=== PATIENT | female | born 1980 | race Two or more races ===

== ENCOUNTER 2017-03-14 13:53 | Inpatient (IN) | payer SELFPAY ==
[~2017-03-14] VITALS: Ht 170.2 cm; Wt 87.5 kg
[~2017-03-14 13:53] MED LIST: ACET-704 PO; IBUP-1060 PO
--- NOTE | 2017-03-14 14:50 | PDOC1 ---
OB - History Hx of Present Care: Good Care Ultrasounds: Normal mid trimester US Obstetrical Complications: None Medical Complications: None Past Family/Social History * Past Medical, Surgical, Family and Obstetric Histories reviewed from chart. Blood Type: Unknown Rubella: Unknown RPR/VDRL: Unknown GBS Status: Unknown HBsAG: Unknown OB - Chief Complaint & HPI Date of Admission: Date of Admission: Mar 14, 2017 at 13:53 Chief Complaint/History : 5 Para: 4 EGA: 38 Reason for admission: active labor Admission Nurse Assessment Rev: Yes Problems: OB - Admission Exam Physical Exam HEENT: Normal Heart: Regular Rate Lungs: Clear, Equal Abdomen: Gravid, Non tender, Soft Extremities: Edema Reflexes: Normal Cervical Dilatation: 4cm Effacement: 75% Station: -3 Membranes: Intact Heart Rate: Normal Accelerations: Accelerations Present Decelerations: No decelerations [place] Variability: Moderate Contractions on Admission: < 5 Minutes Apart Intensity: Moderate Text A: 38 wks IUP Active Labor P: Admit for labor management. Start Pen G if GBS unavailable. FRIDA KITCHEN Jr, MD Mar 14, 2017 14:50
[2017-03-14] MEDS ORDERED: IV RINGERS,LACTATED 1000ML 1,000 ML IV SCH (14:53)
[2017-03-14] MEDS ORDERED: BUTORPHANOL 2 MG/ML VIAL. IV PRN (15:00)
[2017-03-14] MEDS ORDERED: fentaNYL PF VIAL 100 MCG/2 ML VIAL IV PRN (15:00)
[2017-03-14] MEDS ORDERED: 0.9 % SODIUM CHLORIDE 10 ML DISP.SYRIN. IV PRN ×2 (15:00→16:45)
[2017-03-14] MEDS ORDERED: ACETAMINOPHEN 325 MG TABLET. PO PRN ×2 (15:00→16:45)
[2017-03-14] MEDS ORDERED: LIDOCAINE 1% PF 30 ML VIAL. INJ PRN (15:00)
[2017-03-14 15:25] LABS: BASO # 0.1 x10^3/uL (0.0-0.2); BASO % 1 % (0-3); EOS % 1 % (0-3); HEMATOCRIT 40.2 % (36.0-47.0); HEMOGLOBIN 13.1 g/dL (12.0-15.5); LYMPH # 2.1 x10^3/uL (1.0-4.8); LYMPH % 18 % (24-48); MEAN CORPUSCULAR HEMOGLOBIN 31 pg (25-35); MEAN CORPUSCULAR HGB CONC 33 g/dL (31-37); MEAN CORPUSCULAR VOLUME 94 fL (79-100); MONO % 5 % (0-9); NEUT % 75 % (31-73); PLATELET COUNT 172 x10^3/uL (140-400); RED BLOOD COUNT 4.27 x10^6/uL (3.50-5.40); RED CELL DISTRIBUTION WIDTH 13.8 % (11.5-14.5); WHITE BLOOD COUNT 11.5 x10^3/uL (4.0-11.0)
--- NOTE | 2017-03-14 16:41 | PDOC ---
VAGINAL DELIVERY DATE DATE: 03/14/17 TIME: 16:39 : 5 Para: 5 EGA: 38 VAGINAL DELIVERY: VTX VACCUM ASSISTED: No PLACENTA: Spontaneous 8/9 SEX: Male WEIGHT Weight [ 4080 gm] Nuchal Cord: No Amniotic Fluid: Clear PAIN: Natural EPISIOTOMY: No EXTENSION: Yes (2nd degree midline laceration) REPAIRED WITH 2-0 vicryl EBL 300 ml COMPLICATIONS none CONDITION pt. stable Signs of Intrauterine Infectio: None Shoulder Dystocia: No Problems: FRIDA KITCHEN Jr, MD Mar 14, 2017 16:41
[2017-03-14] MEDS ORDERED: DOCUSATE SODIUM 100 MG CAPSULE. PO PRN (16:45)
[2017-03-14] MEDS ORDERED: MAGNESIUM HYDROXIDE 2,400 MG/30 ML ORAL.SUSP. PO PRN (16:45)
[2017-03-14] MEDS ORDERED: IBUPROFEN 800 MG TABLET. PO PRN (16:45)
[2017-03-14] MEDS ORDERED: OXYTOCIN 30 UNIT/500 ML PREMIX 500 ML IV PRN (16:45)
[2017-03-14] MEDS ORDERED: PHENYLEPH/MINERAL OIL/PETROLAT RECTAL OINTMENT 28GM TUBE. RC PRN (16:45)
[2017-03-14] MEDS ORDERED: MMR per PROTOCOL. MC PRN (16:45)
[2017-03-14] MEDS ORDERED: MAG HYDROX/ALUMINUM HYD/SIMETH 30 ML ORAL.SUSP PO PRN (16:45)
[2017-03-14] MEDS ORDERED: HYDROCORTISONE 1% TOPICAL OINTMENT 30GM TUBE. TP PRN (16:45)
[2017-03-14] MEDS ORDERED: BENZOCAINE 20% TOPICAL AEROSOL SPRAY 57GM CAN. TP PRN (16:45)
[2017-03-14] MEDS ORDERED: oxyCODONE/APAP 5/325 1 TAB TABLET PO PRN (16:45)
[2017-03-14] MEDS ORDERED: diphenhydrAMINE HCL 25 MG CAPSULE PO PRN (16:45)
[2017-03-14] MEDS ORDERED: ZOLPIDEM 5 MG TABLET. PO PRN (16:45)
[2017-03-14] MEDS ORDERED: SIMETHICONE 80 MG TAB.CHEW PO PRN (16:45)
[2017-03-14] MEDS: OXYTOCIN 30 UNIT/500 ML PREMIX 500 ML IV PRN (16:53)
[2017-03-14] MEDS ORDERED: FERROUS SULFATE 325 MG TABLET. PO SCH (17:00)
[2017-03-14] MEDS: IBUPROFEN 800 MG TABLET. PO PRN (18:07)
[2017-03-14 19:45] VITALS: BP 109/64
[2017-03-14 20:45] VITALS: BP 106/63
[2017-03-15] MEDS: IBUPROFEN 800 MG TABLET. PO PRN ×3 (00:04→16:56)
[2017-03-15 01:00] VITALS: BP 110/64
[2017-03-15 05:00] VITALS: BP 119/73
[2017-03-15 06:53] LABS: BASO # 0.1 x10^3/uL (0.0-0.2); BASO % 0 % (0-3); EOS % 1 % (0-3); HEMATOCRIT 38.3 % (36.0-47.0); HEMOGLOBIN 12.4 g/dL (12.0-15.5); LYMPH # 2.8 x10^3/uL (1.0-4.8); LYMPH % 18 % (24-48); MEAN CORPUSCULAR HEMOGLOBIN 30 pg (25-35); MEAN CORPUSCULAR HGB CONC 32 g/dL (31-37); MEAN CORPUSCULAR VOLUME 94 fL (79-100); MONO % 5 % (0-9); NEUT % 76 % (31-73); PLATELET COUNT 143 x10^3/uL (140-400); RED BLOOD COUNT 4.08 x10^6/uL (3.50-5.40); RED CELL DISTRIBUTION WIDTH 13.9 % (11.5-14.5); WHITE BLOOD COUNT 15.1 x10^3/uL (4.0-11.0)
[2017-03-15 10:00] VITALS: BP 99/59
[2017-03-15 14:40] VITALS: BP 106/61
[2017-03-15 18:13] VITALS: BP 101/61
[2017-03-15 19:30] VITALS: BP 107/67
[2017-03-15] MEDS: OXYTOCIN 30 UNIT/500 ML PREMIX 500 ML IV PRN (20:19)
[2017-03-16 05:00] VITALS: BP 115/70
[2017-03-16 11:25] VITALS: BP 112/68
[2017-03-16 14:00] VITALS: BP 106/72
--- NOTE | 2017-03-16 17:09 | PDOC ---
OB Progress Note Date of Service 03/16/17 Time of Evaluation 1700 Notes PT. feeling well. No complaints. Lab Laboratory Tests Test 03/15/17 06:08 White Blood Count 15.1 x10^3/uL (4.0-11.0) Red Blood Count 4.08 x10^6/uL (3.50-5.40) Hemoglobin 12.4 g/dL (12.0-15.5) Hematocrit 38.3 % (36.0-47.0) Mean Corpuscular Volume 94 fL (79-100) Mean Corpuscular Hemoglobin 30 pg (25-35) Mean Corpuscular Hemoglobin Concent 32 g/dL (31-37) Red Cell Distribution Width 13.9 % (11.5-14.5) Platelet Count 143 x10^3/uL (140-400) Neutrophils (%) (Auto) 76 % (31-73) Lymphocytes (%) (Auto) 18 % (24-48) Monocytes (%) (Auto) 5 % (0-9) Eosinophils (%) (Auto) 1 % (0-3) Basophils (%) (Auto) 0 % (0-3) Neutrophils # (Auto) 11.5 x10^3uL (1.8-7.7) Lymphocytes # (Auto) 2.8 x10^3/uL (1.0-4.8) Monocytes # (Auto) 0.7 x10^3/uL (0.0-1.1) Eosinophils # (Auto) 0.1 x10^3/uL (0.0-0.7) Basophils # (Auto) 0.1 x10^3/uL (0.0-0.2) Medications Current Medications Sodium Chloride (Normal Saline Flush) 3 ml QSHIFT PRN IV AFTER MEDS AND BLOOD DRAWS; Start 03/14/17 at 15:00; Stop 03/15/17 at 07:42; Status DC Ringer's Solution 1,000 ml @ 125 mls/hr Q8H IV Last administered on t 15:12; Start 03/14/17 at 14:53; Stop 03/15/17 at 07:42; Status DC Butorphanol Tartrate (Stadol) 2 mg PRN Q1HR PRN IV Severe labor pain; Start at 15:00; Stop 03/15/17 at 07:42; Status DC Fentanyl Citrate (Fentanyl 2ml Vial) 50 mcg PRN Q20MIN PRN IV Labor pain; Start 03/14/17 at 15:00; Stop 03/15/17 at 07:42; Status DC Acetaminophen (Tylenol) 650 mg PRN Q6HRS PRN PO MILD PAIN / TEMP; Start at 15:00; Stop 03/15/17 at 07:42; Status DC Lidocaine HCl 30 ml 1X PRN PRN INJ SEE COMMENTS Last administered on 16:54; Start 03/14/17 at 15:00; Stop 03/15/17 at 07:42; Status DC Oxytocin/Sodium Chloride 500 ml @ 0 mls/hr CONT PRN PRN IV Post delivery bleeding Last administered on 03/14/17 16:53; Start 03/14/17 at 15:00 Ibuprofen (Motrin) 800 mg PRN Q6HRS PRN PO PAIN Last administered on 16:56; Start 03/14/17 at 15:00 Sodium Chloride (Normal Saline Flush) 10 ml QSHIFT PRN IV AFTER MEDS AND BLOOD DRAWS; Start 03/14/17 at 16:45 Oxytocin/Sodium Chloride 500 ml @ 62.5 mls/hr CONT PRN IV SEE I/O RECORD; Start 03/14/17 at 16:45; Stop 03/15/17 at 00:44; Status DC Acetaminophen (Tylenol) 650 mg PRN Q6HRS PRN PO MILD PAIN / TEMP; Start at 16:45 Ibuprofen (Motrin) 800 mg PRN Q8HRS PRN PO INFLAMMATION/PAIN PREVENTION; Start 03/14/17 at 16:45; Stop 03/15/17 at 07:42; Status DC Docusate Sodium (Colace) 100 mg PRN BID PRN PO CONSTIPATION; Start 03/14/17 at 16:45 Magnesium Hydroxide (Milk Of Magnesia) 2,400 mg PRN DAILY PRN PO CONSTIPATION; Start 03/14/17 at 16:45 Al Hydroxide/Mg Hydroxide (Mylanta Plus Xs) 30 ml PRN Q4HRS PRN PO HEARTBURN / GAS; Start 03/14/17 at 16:45 Simethicone (Gas-X) 80 mg PRN AFTMEALHC PRN PO GAS / BLOATING; Start 03/14/17 at 16:45 Diphenhydramine HCl (Benadryl) 25 mg PRN Q6HRS PRN PO ITCHING; Start 03/14/17 at 16:45 Benzocaine (Americaine) 1 spray PRN QID PRN TP TOPICAL PAIN Last administered on 03/14/17t 18:07; Start 03/14/17 at 16:45 Phenyleph/Shark Oil/Min Oil/Petrol (Preparation H) 1 reginaldo PRN QID PRN RC RECTAL PAIN; Start 03/14/17 at 16:45 Hydrocortisone (Cortaid) 1 reginaldo PRN QID PRN TP PERINEAL PAIN; Start 03/14/17 at 16:45 Ferrous Sulfate (Feosol) 325 mg BIDWMEALS PO ; Start 03/14/17 at 17:00; Stop 03/15/17 at 07:42; Status DC Zolpidem Tartrate (Ambien) 5 mg PRN QHS PRN PO INSOMNIA, MAY REPEAT X1; Start 03/14/17 at 16:45 Info (Do NOT chart on this placeholder) 1 ea 1X PRN PRN MC SEE COMMENTS; Start 03/14/17 at 16:45; Stop 03/15/17 at 07:42; Status DC Info (Do NOT chart on this placeholder) 1 ea 1X PRN PRN MC SEE COMMENTS; Start 03/14/17 at 16:45; Stop 03/15/17 at 07:42; Status DC Oxycodone/ Acetaminophen (Percocet 5/325) 2 tab PRN Q4HRS PRN PO MODERATE PAIN , SEVERE PAIN; Start 03/14/17 at 16:45 Active Scripts Active Reported Ibuprofen 800 Mg Tablet 1 Tab PO TID Tylenol With Codeine #3 Tablet (Acetaminophen With Codeine) 1 Each Tablet 2 Tab PO PRN Q4HRS PRN Exam Abd: soft, non tender, fundus firm Assessment PPD#2 s/p Plan of Care: See new orders (D/c home.) FRIDA KITCHEN Jr, MD Mar 16, 2017 17:09
--- NOTE | 2017-03-16 17:11 | DISCH ---
DISCHARGE INSTRUCTIONS Condition on Discharge Condition on Discharge: Stable Activity After Discharge Activity Instructions for Disc: Activity as tolerated Lifting Instructions after Dis: No heavy lifting Driving Instructions after Dis: Do not drive today Diet after Discharge Diet after Discharge: Regular Contacting the DRTevin after DC Call your doctor for: Concerns you may have Follow-Up Follow up with: Adeline in 6 weeks. FRIDA KITCHEN Jr, MD Mar 16, 2017 17:11
[2017-03-16] MEDS ORDERED: IBUP-1060 PO (17:12)
== END 2017-03-16 17:48 | disposition home or self-care (01) | DRG 775 ==
LOC: 3 SO LND 13:53 → OBSVTOIN 13:53 → 3 SO LND 14:05 → 3 NORTH 03-15 04:26
PROVIDERS: ADMIT Obstetrics & Gynecology; ATTEND Obstetrics & Gynecology
PROC: 10E0XZZ Delivery of Products of Conception, External Approach (ICD-10-PCS; principal; 2017-03-14)
PROC: 0KQM0ZZ Repair Perineum Muscle, Open Approach (ICD-10-PCS; 2017-03-14)
DX: O70.1 Second degree perineal laceration during delivery (principal); Z37.0 Single live birth; Z3A.38 38 weeks gestation of pregnancy
CPT/HCPCS: 36415; 85025; 86850; 86900; 86901; G0378; J2590; J7120